=== PATIENT | female | born 1960 | race African-American/Black ===

== ENCOUNTER 2019-05-02 05:51 | Day surgery (SDC) | payer OTHER ==
[2019-04-30 14:14] VITALS: BMI 27.9
[2019-05-02] MEDS ORDERED: PROPOFOL 20 ML ONE (06:38)
[2019-05-02] MEDS ORDERED: Clindamycin/D5W 600 mg/50 ml Premix Bag ONE (06:38)
[2019-05-02] MEDS ORDERED: HYDROcodone/Acetaminophen 5/325 mg Tablet ONE (09:35)
[2019-05-02] MEDS ORDERED: Ketorolac Tromethamine 30 MG/ML VIAL ONE (09:41)
[2019-05-02] MEDS ORDERED: Bupivacaine HCl 0.5%/Epinephrine 1:200,000/PF 30 ml Vial ONE (09:41)
[2019-05-02] MEDS ORDERED: Lidocaine 1% PF 5 ML VIAL ONE (09:41)
[2019-05-02] MEDS ORDERED: PROPOFOL 200 MG/20 ML VIAL ONE (09:41)
[2019-05-02] MEDS ORDERED: Ondansetron PF 4 MG/2 ML Vial ONE (09:41)
[2019-05-02] MEDS ORDERED: Lidocaine 2% w/Epinephrine 1:200K 20 ML VIAL ONE (09:41)
--- NOTE | 2019-05-02 09:55 | OP ---
DATE OF PROCEDURE: 05/02/2019 PREOPERATIVE DIAGNOSES: Left knee medial meniscus tear; grade 3 and 4 cartilage loss, medial femoral condyle as well as trochlea. POSTOPERATIVE DIAGNOSES: 1. Left knee medial meniscus tear; grade 3 and 4 cartilage loss, medial femoral condyle as well as trochlea. 2. Multiple cartilaginous loose bodies. PROCEDURES PERFORMED: 1. Left knee arthroscopy with partial medial meniscectomy. 2. Debridement and shaving of cartilaginous loose bodies as well as unstable cartilage flaps on the medial femoral condyle and trochlea. PIPELINE SUPERINTENDENT: None. BLOOD LOSS: Minimal. COMPLICATIONS: None. ANESTHESIA: The patient had a general anesthetic as well as a local knee block. DISPOSITION: She went to Day Stay in stable condition. INDICATIONS FOR PROCEDURE: A 58-year-old female, who has had problems with pain, swelling, and catching in the knee, and at this time, she has opted for surgery. DESCRIPTION OF PROCEDURE: After all appropriate consent forms were explained and signed, she was taken to the operative room and at this time was given general anesthetic. Once the level of anesthesia was appropriate, tourniquet was placed in the left thigh. Leg was placed in arthroscopic leg messina. The limb was then prepped and draped in standard surgical fashion. The limb was then exsanguinated. The tourniquet was taken up to 300 mmHg. Inferolateral portal was established. Scope was placed into the knee joint. Needle localization technique was then used to make a medial working portal. Diagnostic arthroscopy commenced in the notch. ACL and PCL were probed, found to be intact. Medial compartment was evaluated. There was a large meniscus tear in the body. The pieces flipped out of the joint and had become almost calcified and looked like a large loose piece of bone. Shaver and biter were introduced to remove this hard piece of meniscus and take the meniscus down to a stable base. There was some grade 3 and 4 cartilage loss on the medial femoral condyle in the central area. The tibial plateau overall was in good condition. Gutters were swept through. There were some cartilaginous loose bodies, which were removed. Patellofemoral joint showed the patella overall to be in pretty good condition. The trochlea in its most proximal aspect was in good condition, but as you went down further distally, there was some significant grade 3 loss. There was a fair amount of cartilaginous debris in the suprapatellar pouch as well as the lateral gutter. This was all removed with the shaver at this time. We then turned our attention to the lateral compartment, and the femur, tibia, and lateral meniscus were all probed, found to be intact. Popliteus tendon was intact. We went behind the knee looking in the posteromedial and posterolateral compartments making sure there were no remaining loose bodies, and there were none. At this time, scope was removed. Knee was drained. Portals were closed with simple nylon stitch. Bulky sterile dressing was applied. Tourniquet was let down. Toes pinked up nicely. The patient was awakened. She was taken to Day Stay in stable condition. All counts were correct at the end of the case. She received preoperative IV antibiotics. Job ID: [id number]
== END 2019-05-02 10:15 | disposition home or self-care (01) ==
LOC: SDC 05:51
PROVIDERS: ATTEND Orthopaedic Surgery
PROC: 0SBD4ZZ Excision of Left Knee Joint, Percutaneous Endoscopic Approach (ICD-10-PCS; principal; 2019-05-02)
DX: S83.242A Other tear of medial meniscus, current injury, left knee, initial encounter (principal); M17.12 Unilateral primary osteoarthritis, left knee; I10 Essential (primary) hypertension; E78.5 Hyperlipidemia, unspecified; D64.9 Anemia, unspecified; F41.9 Anxiety disorder, unspecified; F32.9 Major depressive disorder, single episode, unspecified; K50.90 Crohn's disease, unspecified, without complications; Z79.899 Other long term (current) drug therapy; Z88.0 Allergy status to penicillin
CPT/HCPCS: J0670; J1885; J2001; J2405; J2704; J3490

== ENCOUNTER 2023-10-14 14:39 | Outpatient (CLI) | payer MEDICARE | END 2023-10-14 14:40 | disposition home or self-care (01) | LOC: BICCT 14:39 | PROVIDERS: ATTEND Orthopaedic Surgery | DX: M17.12 Unilateral primary osteoarthritis, left knee (principal); M25.462 Effusion, left knee; M71.22 Synovial cyst of popliteal space [Baker], left knee ==

== ENCOUNTER 2023-10-21 11:22 | Outpatient (CLI) | payer MEDICARE ==
[2023-10-21 15:03] LABS: #Basophils 0.04 10x3/uL (0.0-0.2); #Eosinphils 0.07 10x3/uL (0.0-0.5); #Monocytes 0.48 10x3/uL (0.0-1.1); #Neutrophils 3.69 10x3/uL (1.5-8.4); %Basophils 0.7 % (0.0-2.0); %Eosinophils 1.2 % (0.0-6.0); %Lymphocytes 23.9 % (18.0-47.0); %Monocytes 8.5 % (0.0-10.0); %Neutrophils 65.3 % (40.0-75.0); Hematocrit 40.4 % (34.9-44.5); Hemoglobin 13.2 g/dL (12.0-15.5); Mean Corpuscular HGB CONC 32.7 g/dL (32.0-36.0); Mean Corpuscular Hemoglobin 27.4 pg (27.0-33.0); Mean Platelet Volume 9.4 fL (7.4-10.4); Platelet Count 292 10x3/uL (150-450); RBC Distribution Width 14.5 % (11.5-14.5); Red Blood Cell (RBC) Count 4.81 10x6/uL (3.90-5.03); White Blood Cell (WBC) Count 5.7 10x3/uL (3.5-10.5)
[2023-10-21 15:08] LABS: Bilirubin Neg (Negative); Blood, Urine Negative (Negative); Glucose, Urine (Dipstick) Normal (Negative); Ketone, Urine Negative (Negative); Leukocyte Negative (Negative); Nitrite Negative (Negative); Protein, Urine (Dipstick) Negative (Neg-Trace); Urobilinogen Normal mg/dL (Less than 2); pH, Urine 6.5 (5.0-9.0)
[2023-10-21 15:09] LABS: Clarity Clear (Clear)
[2023-10-21 15:18] LABS: INR-International Normal Ratio 1.1; Prothrombin Time 11.4 sec (9.5-12.1)
[2023-10-21 15:24] LABS: Anion Gap 13 mmol/L (10-20); BUN (Urea Nitrogen) 15 mg/dL (9.8-20.1); Calc. Creatinine Clearance 0 mL/min (70-130); Calcium 9.4 mg/dL (7.8-10.44); Carbon Dioxide 23 mmol/L (23-31); Chloride 108 mmol/L (98-107); Estimated GFR 60; Glucose 92 mg/dL (80-115); Potassium 4.4 mmol/L (3.5-5.1); Sodium 140 mmol/L (136-145)
== END 2023-10-21 11:23 | disposition home or self-care (01) ==
LOC: LABBT 11:22
PROVIDERS: ATTEND Orthopaedic Surgery
DX: Z01.818 Encounter for other preprocedural examination (principal); M17.12 Unilateral primary osteoarthritis, left knee
CPT/HCPCS: 71046; 80048; 81003; 85025; 85610; 87081; 93005; 93010

== ENCOUNTER 2023-10-26 05:27 | Observation (INO) | payer MEDICARE ==
[2023-10-26] MEDS ORDERED: Tranexamic Acid 1,000 MG/10 ML VIAL ONE ×2 (06:22→10:12)
[2023-10-26] MEDS ORDERED: Sodium Chloride 0.9% 100 ML ONE (06:22)
[2023-10-26] MEDS ORDERED: Vancomycin 1 GM/200 ML (FROZEN) BAG ONE (06:23)
[2023-10-26] MEDS ORDERED: Bupivacaine PF 0.5% 30 ML VIAL ONE ×2 (06:25→06:52)
[2023-10-26] MEDS ORDERED: EPINEPHrine 1 MG/ML VIAL ONE (06:51)
[2023-10-26] MEDS ORDERED: fentaNYL 50 mcg/mL 1 mL Vial ONE ×2 (06:51→08:28)
[2023-10-26] MEDS ORDERED: Lidocaine 1% (PF) 30 ML VIAL ONE (06:51)
[2023-10-26] MEDS ORDERED: Midazolam HCl 2 mg/2 ml Vial ONE (06:51)
[2023-10-26] MEDS ORDERED: Clindamycin/D5W 600 mg/50 ml Premix Bag ONE (07:06)
[2023-10-26] MEDS ORDERED: Dexamethasone 4 mg/ml Vial ONE (07:12)
[2023-10-26] MEDS ORDERED: Ondansetron PF 4 MG/2 ML Vial ONE (07:12)
[2023-10-26] MEDS ORDERED: Lidocaine 1% PF 5 ML VIAL ONE (07:12)
[2023-10-26] MEDS ORDERED: PROPOFOL 20 ML ONE (07:12)
[2023-10-26] MEDS ORDERED: Ketorolac Tromethamine 30 MG (1 mL) VIAL ONE (07:12)
[2023-10-26] MEDS ORDERED: fentaNYL 50 mcg/mL 1 mL Vial SLOW IVP PRN (07:32)
[2023-10-26] MEDS ORDERED: Ropivacaine 0.2% 550 ML 550 ML NERVE BLCK SCH (07:45)
[2023-10-26] MEDS ORDERED: traMADol HCl 50 MG TAB PO PRN (07:45)
[2023-10-26] MEDS ORDERED: ePHEDrine Sulfate 50 MG/10 ML VIAL ONE (08:02)
[2023-10-26] MEDS ORDERED: fentaNYL PF 100 MCG/2 ML SYRINGE ONE (10:01)
[2023-10-26] MEDS ORDERED: Meperidine HCl/PF 25 MG (1 mL) VIAL ONE (10:01)
[2023-10-26] MEDS ORDERED: Promethazine HCl 25 MG/ML VIAL IM PRN (10:06)
[2023-10-26] MEDS ORDERED: Acetaminophen 325 MG TAB PO PRN (10:06)
[2023-10-26] MEDS ORDERED: Zolpidem Tartrate 5 MG TAB PO PRN (10:06)
[2023-10-26] MEDS ORDERED: diphenhydrAMINE 25 MG CAP PO PRN (10:06)
[2023-10-26] MEDS ORDERED: Ondansetron PF 4 MG/2 ML Vial IVP PRN (10:06)
[2023-10-26] MEDS ORDERED: Tranexamic Acid 1,000 MG in Sodium Chloride 0.9% 100 ML IVPB SCH (10:15)
[2023-10-26] MEDS: Clindamycin/D5W 900 MG in Premix 1 BAG IVPB SCH (11:36)
[2023-10-26] MEDS: Sodium Chloride 0.9% 1,000 ML IV SCH (11:36)
[2023-10-26] MEDS: Ketorolac Tromethamine 30 MG (1 mL) VIAL IVP SCH (11:37)
[2023-10-26 11:38] VITALS: BMI 27.7
[2023-10-26] MEDS: HYDROcodone/Acetaminophen 10/325 mg Tablet PO PRN (13:28)
[2023-10-26] MEDS: Ondansetron PF 4 MG/2 ML Vial IVP PRN (14:06)
[2023-10-26] MEDS: Vancomycin (BATCH) 1.5 GM in Premix 1 BAG IVPB SCH (18:14)
[2023-10-26] MEDS: Vancomycin 1.5 GM in Sodium Chloride 0.9% 250 ML 300 ML IVPB SCH (18:22)
[2023-10-26] MEDS: Ezetimibe 10 MG TAB PO SCH (20:07)
[2023-10-26] MEDS: Ferrous Gluconate 324 MG TAB PO SCH (20:08)
[2023-10-26] MEDS: Loratadine 10 MG TAB PO SCH (20:08)
[2023-10-26] MEDS: Fenofibrate Nanocrystallized 145 MG TAB PO SCH (20:08)
[2023-10-26] MEDS: Senokot S 8.6-50 MG TAB PO SCH (20:08)
[2023-10-26] MEDS: busPIRone HCl 5 MG TAB PO SCH (20:08)
[2023-10-26] MEDS: Docusate 100 MG CAP PO SCH (20:08)
[2023-10-26] MEDS: Zolpidem Tartrate 5 MG TAB PO PRN (20:09)
[2023-10-26] MEDS: Aspirin 81 mg Enteric Coated Tablet PO SCH (20:09)
[2023-10-26] MEDS ORDERED: Docusate 100 MG CAP PO SCH (21:00)
[2023-10-26] MEDS ORDERED: Non-Formulary Item 1 EACH (Fenofibrate [Fenofibrate] 160 MG Tablet) PO SCH (21:00)
[2023-10-26] MEDS ORDERED: Ezetimibe 10 MG TAB PO SCH (21:00)
[2023-10-26] MEDS ORDERED: Non-Formulary Item 1 EACH (Zolpidem Tartrate [Zolpidem Tartrate] 10 MG Tablet) PO SCH (21:00)
[2023-10-26] MEDS ORDERED: Cetirizine HCl 10 MG TAB PO SCH (21:00)
[2023-10-26] MEDS ORDERED: Non-Formulary Item 1 EACH (Buspirone Hcl [Buspirone Hcl] 15 MG Tablet) PO SCH (21:00)
[2023-10-27] MEDS: traMADol HCl 50 MG TAB PO PRN (05:12)
[2023-10-27] MEDS ORDERED: Non-Formulary Item 1 EACH (Multivitamin [Multivitamins] 1 CAP Capsule) PO SCH (09:00)
[2023-10-27] MEDS ORDERED: Dicyclomine 10 MG CAP PO SCH (09:00)
[2023-10-27] MEDS ORDERED: LANSOPRAZOLE PO SCH (09:00)
[2023-10-27] MEDS ORDERED: Escitalopram Oxalate 20 mg Tablet PO SCH (09:00)
[2023-10-27] MEDS: Escitalopram Oxalate 20 mg Tablet PO SCH (09:10)
[2023-10-27] MEDS: Pantoprazole DR 40 MG TAB PO SCH (09:10)
[2023-10-27] MEDS: Dicyclomine 20 MG TAB PO SCH (09:10)
[2023-10-27] MEDS: Amlodipine 10 MG TAB PO SCH (09:10)
[2023-10-27] MEDS: Multivitamin W/ Minerals 1 TAB PO SCH (09:10)
[2023-10-27] MEDS: HYDROcodone/Acetaminophen 10/325 mg Tablet PO PRN (09:11)
[2023-10-27 09:52] LABS: Hematocrit 33.5 % (36.0-47.0); Hemoglobin 10.7 g/dL (12.0-16.0); Mean Corpuscular HGB CONC 31.9 g/dL (32.0-36.0); Mean Corpuscular Hemoglobin 27.3 pg (27.0-31.0); Mean Corpuscular Volume 85.5 fL (78.0-98.0); Mean Platelet Volume 9.7 fL (7.4-10.4); Platelet Count 224 10x3/uL (130-400); RBC Distribution Width 14.8 % (11.5-14.5); Red Blood Cell (RBC) Count 3.92 mill/uL (4.20-5.40)
[2023-10-27] MEDS: Promethazine HCl 25 MG/ML VIAL IM PRN (10:20)
[2023-10-27 11:27] VITALS: BP 118/75; TEMP 98
== END 2023-10-27 13:27 | disposition home or self-care (01) ==
LOC: SDC 05:27 → SURG A 10:41
PROVIDERS: ADMIT Orthopaedic Surgery; ATTEND Orthopaedic Surgery
PROC: 0SRD0JZ Replacement of Left Knee Joint with Synthetic Substitute, Open Approach (ICD-10-PCS; principal; 2023-10-26)
PROC: 3E0T3BZ Introduction of Anesthetic Agent into Peripheral Nerves and Plexi, Percutaneous Approach (ICD-10-PCS; 2023-10-26)
DX: M17.12 Unilateral primary osteoarthritis, left knee (principal); I10 Essential (primary) hypertension; F41.9 Anxiety disorder, unspecified; Z90.49 Acquired absence of other specified parts of digestive tract; Z88.0 Allergy status to penicillin; Z79.899 Other long term (current) drug therapy
CPT/HCPCS: 27447; 64447; 85027; 97110; 97116 ×2; 97530; A4306; C1713; C1776; C1889; J0171; J0665; J1100; J1885 ×2; J2001; J2175; J2250; J2405 ×2; J2550; J2704; J2795; J3010; J3370 ×2; J3490 ×3; J7050; 36415